=== PATIENT | male | born 1970 ===

== ENCOUNTER 2016-10-22 08:18 | Emergency (ER) | payer SELFPAY ==
[2016-10-22] MEDS ORDERED: IOPAMIDOL 370 (76%) 100 ML VIAL IV ONE (08:19)
[2016-10-22 09:27] LABS: ABSOLUTE NEUTROPHIL COUNT 3.6 K/mm3 (1.8-7.7); BASO % 0.4 % (0.2-1.0); EOS # 0.2 (0.0-0.5); EOS % 3.2 % (0.9-2.9); HEMATOCRIT 42.4 % (32.0-52.0); HEMOGLOBIN 14.4 gm/l (14.0-18.0); IMM NEUT% 0.4 % (0-1); LYMPH # 1.1 (1.0-4.8); LYMPH % 19.6 % (15-45); MEAN CELL VOLUME 95.9 fl (80.0-94.0); MEAN CORPUSCULAR HEMOGLOBIN 32.6 pg (27.0-31.0); MEAN PLATELET VOLUME 10.9 fl (7.4-10.4); MONO # 0.7 (0.0-0.8); MONO % 11.8 % (4-12); NEUT % 64.6 % (43-75); PLATELET COUNT 229 K/mm3 (130-400); RED CELL DISTRIBUTION WIDTH 12.1 % (11.5-14.5)
[2016-10-22 09:41] LABS: ALB/GLOB RATIO 1.1 (>1.0); ALBUMIN 3.7 gm/dL (3.5-5.7); CALCIUM 8.5 mg/dL (8.6-10.3)
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
== END 2016-10-22 12:01 | disposition home or self-care (01) ==
LOC: ED 08:18
DX: K42.9 Umbilical hernia without obstruction or gangrene (principal); K21.9 Gastro-esophageal reflux disease without esophagitis; I10 Essential (primary) hypertension; E11.9 Type 2 diabetes mellitus without complications; Z79.4 Long term (current) use of insulin
CPT/HCPCS: 83690; 85025; 80053; 84484; 74177; 99284 ×2; Q9967

== ENCOUNTER 2016-10-30 20:25 | Emergency (ER) | payer SELFPAY ==
[2016-10-30 22:19] LABS: ABSOLUTE NEUTROPHIL COUNT 5.5 K/mm3 (1.8-7.7); BASO % 0.4 % (0.2-1.0); EOS # 0.1 (0.0-0.5); EOS % 1.5 % (0.9-2.9); HEMOGLOBIN 15.8 gm/l (14.0-18.0); IMM NEUT% 0.2 % (0-1); LYMPH # 1.8 (1.0-4.8); LYMPH % 21.9 % (15-45); MEAN CELL VOLUME 95.3 fl (80.0-94.0); MEAN CORPUSCULAR HGB CONC 33.6 g/dl (33.0-37.0); MEAN PLATELET VOLUME 11.2 fl (7.4-10.4); MONO # 0.8 (0.0-0.8); MONO % 9.6 % (4-12); NEUT % 66.4 % (43-75); PLATELET COUNT 252 K/mm3 (130-400); RED CELL DISTRIBUTION WIDTH 11.9 % (11.5-14.5)
[2016-10-30 22:38] LABS: ALB/GLOB RATIO 1.1 (>1.0); ALBUMIN 4.2 gm/dL (3.5-5.7); CALCIUM 9.5 mg/dL (8.6-10.3)
[2016-10-30] MEDS ORDERED: SODIUM CHLORIDE 0.9% 1,000 ML ONE (22:41)
[2016-10-30] MEDS ORDERED: HYDROMORPHONE HCL 1 MG/ML SYRINGE ONE (22:41)
[2016-10-30] MEDS ORDERED: ONDANSETRON 4 MG/2ML 2 ML VIAL ONE (22:41)
[2016-10-31] LABS: URINE BILIRUBIN NEGATIVE (NEGATIVE); URINE BLOOD NEGATIVE (NEGATIVE); URINE GLUCOSE (UA) 3+ (NEGATIVE); URINE LEUKOCYTE ESTERASE NEGATIVE (NEGATIVE); URINE NITRITE NEGATIVE (NEGATIVE); URINE PROTEIN 2+ (NEGATIVE); URINE UROBILINOGEN NORMAL (0-1 mg/dl)
[2016-10-31 00:01] LABS: URINE APPEARANCE CLEAR; URINE COLOR YELLOW
[2016-10-31] MEDS: IOPAMIDOL 300 (61%) 100 ML VIAL IV ONE (00:10)
[2016-10-31 00:41] LABS: URINE EPITHELIAL CELLS 0-1 /hpf; URINE WBC RARE /hpf
[2016-10-31 00:42] LABS: URINE OTHER 2-3 SPERM/hpf
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
== END 2016-10-31 02:01 | disposition home or self-care (01) ==
LOC: ED 20:25
DX: K42.9 Umbilical hernia without obstruction or gangrene (principal); R11.2 Nausea with vomiting, unspecified; K21.9 Gastro-esophageal reflux disease without esophagitis; I10 Essential (primary) hypertension; E11.9 Type 2 diabetes mellitus without complications; Z79.4 Long term (current) use of insulin
CPT/HCPCS: 83605; 83690; 85025; 80053; 81001; 74022; 74177; 96375; 99284 ×2; 96374; 96361; J1170; J2405; J7030; Q9967